=== PATIENT | female | born 1935 | race Caucasian/White ===

== ENCOUNTER 2018-01-02 19:53 | Inpatient (IN) | payer MEDICARE, OTHER ==
--- NOTE | 2018-01-02 20:19 | EDM.PDOC ---
ED HPI GENERAL MEDICAL PROBLEM - General Chief Complaint: General Stated Complaint: [facility] Time Seen by Provider: 01/02/18 19:57 Source of Information: Reports: Patient, EMS History Limitations: Reports: No Limitations - History of Present Illness INITIAL COMMENTS - FREE TEXT/NARRATIVE: This is an 82-year-old female. She apparently was doing fine this morning went out and worked in the yard then came back into the house and took a nap and woke up around 1 PM. When she attempted to get out of bed she had severe dizziness with nausea and vomiting and a brief episode of syncope. Apparently she tells me that she's tried to get out of bed several times but because of the brief syncope with nausea and vomiting and dizziness she could not get up. She tells me the dizziness is more like the room spinning. She denies any vomiting of blood or black or red stools recently. She denies any recent upper respiratory infections coughs or colds. She denies any chest pain. She does take amiodarone and she has a very old prescription of meclizine that looks like it's about 8 years old. She denies any abdominal pain just complains of nausea and vomiting. She denies any significant weakness unilateral arm or leg at this time. She denies any headaches at this time. She has no history of strokes in the past though there is a large family history of strokes. I quizzed the patient again and when I asked if it was the room spinning or lightheaded she had a hard time telling me which one then she settled on lightheaded not the room spinning. - Related Data Allergies Allergy/AdvReac Type Severity Reaction Status Date / Time No Known Allergies Allergy Verified 01/02/18 20:20 Home Meds: Home Meds Losartan Potassium 100 mg PO DAILY 01/02/18 [History] Meclizine [Antivert] 25 mg PO TID PRN 01/02/18 [History] Pravastatin Sodium 20 mg PO DAILY 01/02/18 [History] Zolpidem [Ambien] 5 mg PO BEDTIME PRN 01/02/18 [History] amLODIPine [Norvasc] 5 mg PO DAILY 01/02/18 [History] oxyCODONE ER [OxyCONTIN] 20 mg PO BID PRN 01/02/18 [History] ED ROS GENERAL - Review of Systems Review Of Systems: See Below Constitutional: Reports: Weakness. Denies: Fever, Chills HEENT: Reports: Vertigo. Denies: Ear Discharge, Ear Pain, Nosebleed, Rhinitis, Sinus Problem, Throat Pain, Throat Swelling, Vision Change Respiratory: Denies: Shortness of Breath, Cough Cardiovascular: Reports: Lightheadedness, Syncope. Denies: Chest Pain Endocrine: Reports: No Symptoms GI/Abdominal: Denies: Abdominal Pain, Black Stool, Bloody Stool, Diarrhea, Hematemesis, Nausea, Vomiting : Denies: Discharge, Dysuria Musculoskeletal: Reports: No Symptoms Skin: Reports: No Symptoms Neurological: Reports: Dizziness. Denies: Headache, Numbness, Paresthesia, Tingling Psychiatric: Reports: No Symptoms Hematologic/Lymphatic: Reports: No Symptoms Immunologic: Reports: No Symptoms ED EXAM, GENERAL - Physical Exam Exam: See Below Exam Limited By: No Limitations General Appearance: Alert, WD/WN, Mild Distress Eye Exam: Bilateral Eye: EOMI, Normal Inspection, Nystagmus (When she turns her head to the left she gets more dizziness than when she turns to the right, there might be some vertical nystagmus noted with head movement but she doesn't want to move her head), PERRL Ears: Normal External Exam, Normal Canal, Normal TMs Nose: Normal Inspection Throat/Mouth: Normal Inspection, Normal Lips, Normal Oropharynx, Normal Voice, No Airway Compromise Head: Normocephalic Neck: Supple, Non-Tender Respiratory/Chest: No Respiratory Distress, Lungs Clear, Normal Breath Sounds Cardiovascular: Regular Rate, Rhythm, No Murmur GI/Abdominal: Soft, Non-Tender. No: Distended, Guarding, Rigid, Rebound Extremities: Normal Inspection, Normal Range of Motion, No Pedal Edema Neurological: Alert, Oriented, Other (Patient is generally weak but she is able to business economist symmetrically and raise her upper extremities symmetrically as well as her lower extremities symmetrically.) Psychiatric: Normal Mood, Anxious Skin Exam: Warm, Dry EKG INTERPRETATION EKG Date: 01/02/18 Time: 20:15 EKG Interpretation Comments: Normal sinus rhythm with multiple PVCs, there is no acute ST elevation or T- wave changes, and no obvious ischemic changes noted, the PVCs appeared to be unifocal. Course - Vital Signs Last Recorded V/S: Last Vital Signs Temp 99 F 01/02/18 20:02 Pulse 90 01/02/18 21:01 Resp 18 01/02/18 21:01 BP 141/81 H 01/02/18 21:01 Pulse Ox 88 L 01/02/18 21:01 Orthostatic Blood Pressure [ 177/74 Sitting] Orthostatic Blood Pressure [ 166/80 Supine] - Orders/Labs/Meds Orders: Active Orders 24 hr Category Date Time Status EKG 12 Lead [EKG Documentation Completion] [RC] STAT Care 01/02/18 20:07 Active UA W/MICROSCOPIC [URIN] Stat Lab 01/02/18 20:06 Ordered Sodium Chloride 0.9% [Normal Saline] 1,000 ml Med 01/02/18 20:30 Active IV ASDIRECTED Medication Orders Sodium Chloride (Normal Saline) 1,000 mls @ 100 mls/hr IV ASDIRECTED AWA Last Admin: 01/02/18 20:36 Dose: 100 mls/hr Labs: Laboratory Tests 01/02/18 01/02/18 01/02/18 Range/Units 20:50 20:50 20:50 WBC 7.32 (3.98-10.04) K/mm3 RBC 4.63 (3.98-5.22) M/mm3 Hgb 13.2 (11.2-15.7) gm/L Hct 40.3 (34.1-44.9) % MCV 87.0 (79.4-94.8) fl MCH 28.5 (25.6-32.2) pg MCHC 32.8 (32.2-35.5) g/dl RDW Std Deviation 46.1 (36.4-46.3) fL Plt Count 185 (182-369) K/mm3 MPV 10.4 (9.4-12.3) fl Neut % (Auto) 83.4 H (34.0-71.1) % Lymph % (Auto) 12.4 L (19.3-51.7) % [place] % (Auto) 3.6 L (4.7-12.5) % Eos % (Auto) 0.4 L (0.7-5.8) Baso % (Auto) 0.1 (0.1-1.2) % Neut # (Auto) 6.10 (1.56-6.13) K/mm3 Lymph # (Auto) 0.91 L (1.18-3.74) K/mm3 [place] # (Auto) 0.26 (0.24-0.36) K/mm3 Eos # (Auto) 0.03 L (0.04-0.36) K/mm3 Baso # (Auto) 0.01 (0.01-0.08) K/mm3 Sodium 138 (136-145) mEq/L Potassium 3.7 (3.5-5.1) mEq/L Chloride 104 (98-107) mEq/L Carbon Dioxide 25 (21-32) mEq/L Anion Gap 12.7 (5-15) BUN 15 (7-18) mg/dL Creatinine 0.9 (0.55-1.02) mg/dL Est Cr Clr Drug Dosing 46.94 mL/min Estimated GFR (MDRD) 60 (>60) mL/min BUN/Creatinine Ratio 16.7 (14-18) Glucose 197 H (83-115) mg/dL Calcium 8.8 (8.5-10.1) mg/dL Total Bilirubin 0.7 (0.2-1.0) mg/dL AST 21 (15-37) U/L ALT 20 (14-59) U/L Alkaline Phosphatase 60 (46-116) U/L Troponin I < 0.017 (0.00-0.056) ng/mL C-Reactive Protein (<1.0) mg/dL NT-Pro-B Natriuret Pep 274 (0-450) pg/mL Total Protein 6.7 (6.4-8.2) g/dl Albumin 3.2 L (3.4-5.0) g/dl Globulin 3.5 gm/dL Albumin/Globulin Ratio 0.9 L (1-2) 01/02/18 Range/Units 20:50 WBC (3.98-10.04) K/mm3 RBC (3.98-5.22) M/mm3 Hgb (11.2-15.7) gm/L Hct (34.1-44.9) % MCV (79.4-94.8) fl MCH (25.6-32.2) pg MCHC (32.2-35.5) g/dl RDW Std Deviation (36.4-46.3) fL Plt Count (182-369) K/mm3 MPV (9.4-12.3) fl Neut % (Auto) (34.0-71.1) % Lymph % (Auto) (19.3-51.7) % [place] % (Auto) (4.7-12.5) % Eos % (Auto) (0.7-5.8) Baso % (Auto) (0.1-1.2) % Neut # (Auto) (1.56-6.13) K/mm3 Lymph # (Auto) (1.18-3.74) K/mm3 [place] # (Auto) (0.24-0.36) K/mm3 Eos # (Auto) (0.04-0.36) K/mm3 Baso # (Auto) (0.01-0.08) K/mm3 Sodium (136-145) mEq/L Potassium (3.5-5.1) mEq/L Chloride (98-107) mEq/L Carbon Dioxide (21-32) mEq/L Anion Gap (5-15) BUN (7-18) mg/dL Creatinine (0.55-1.02) mg/dL Est Cr Clr Drug Dosing mL/min Estimated GFR (MDRD) (>60) mL/min BUN/Creatinine Ratio (14-18) Glucose (83-115) mg/dL Calcium (8.5-10.1) mg/dL Total Bilirubin (0.2-1.0) mg/dL AST (15-37) U/L ALT (14-59) U/L Alkaline Phosphatase (46-116) U/L Troponin I (0.00-0.056) ng/mL C-Reactive Protein < 0.2 (<1.0) mg/dL NT-Pro-B Natriuret Pep (0-450) pg/mL Total Protein (6.4-8.2) g/dl Albumin (3.4-5.0) g/dl Globulin gm/dL Albumin/Globulin Ratio (1-2) Meds: Medications Generic Name Dose Route Start Last Admin Trade Name Freq PRN Reason Stop Dose Admin Sodium Chloride 1,000 mls @ 100 mls/hr 01/02/18 20:30 01/02/18 20:36 Normal Saline IV 100 mls/hr ASDIRECTED AWA Administration Discontinued Medications Generic Name Dose Route Start Last Admin Trade Name Freq PRN Reason Stop Dose Admin Promethazine HCl 25 mg/ Sodium 51 mls @ 100 mls/hr 01/02/18 20:24 01/02/18 20 :36 Chloride IV 01/02/18 20:54 100 mls/hr ONETIME ONE Administration - Radiology Interpretation Free Text/Narrative:: CT scan of the head does not show any acute changes or bleed, she does have some chronic ischemic changes noted. - Re-Assessments/Exams Free Text/Narrative Re-Assessment/Exam: 01/02/18 20:23 A check of her vomitus shows coffee grounds that are positive for blood and her stool is slightly positive for blood as well. 01/02/18 20:58 Patient is noted to have a low pulse ox it drops down to 89% on room air and she is awake and talking. We will provide 2 L/m nasal cannula. 01/02/18 22:45 We have attempted several times to sit the patient up and she just has persistent nausea and vomiting and complains of being lightheaded or having dizziness. I spoke to the regarding the symptoms and I believe she will need to be admitted due to her persistent dizziness with nausea and vomiting and inability to ambulate. 01/02/18 22:[address] Narvaez and she will admit the patient for further evaluation and treatment. Departure - Departure Time of Disposition: 22:46 Disposition: Admitted As Inpatient 64 Condition: Fair Clinical Impression: Dizziness, Vertigo, Hematemesis with nausea, Blood present in stool, Elevated blood pressure reading Nausea & vomiting Qualifiers: Vomiting type: unspecified Vomiting Intractability: intractable Qualified Code( s): R11.2 - Nausea with vomiting, unspecified - Discharge Information ED Communication - ED Communication Date/Time Date: 01/02/18 Time Called: 22:49 - Discussed Case With (1) Discussed Case With (1): Admitting Provider Person/s Notified (1): Amanda Narvaez (She will admit the patient for further evaluation and treatment) - My Orders Last 24 Hours: My Active Orders 01/02/18 20:06 UA W/MICROSCOPIC [URIN] Stat 01/02/18 20:07 EKG 12 Lead [EKG Documentation Completion] [RC] STAT 01/02/18 20:30 Sodium Chloride 0.9% [Normal Saline] 1,000 ml IV ASDIRECTED - Assessment/Plan Last 24 Hours: My Active Orders 01/02/18 20:06 UA W/MICROSCOPIC [URIN] Stat 01/02/18 20:07 EKG 12 Lead [EKG Documentation Completion] [RC] STAT 01/02/18 20:30 Sodium Chloride 0.9% [Normal Saline] 1,000 ml IV ASDIRECTED
[2018-01-02] MEDS ORDERED: Promethazine 25 MG in Sodium Chloride 0.9% 50 ML IV ONE (20:24)
[2018-01-02] MEDS: Sodium Chloride 0.9% 1,000 ML IV SCH (20:36)
--- NOTE | 2018-01-02 20:47 | CT ---
Head CT Technique: Multiple axial sections through the brain were obtained. Intravenous contrast was not utilized. Comparison: No previous intracranial imaging. Findings: Ventricles along with basal cisterns and sulci over convexities are mildly to moderately prominent. Increased CSF space is seen overlying the left frontal and parietal regions which is more prominent on the left side than on the right side which is felt to be due to asymmetric atrophy. Diminished density is noted within portions of the periventricular and subcortical white matter on both sides compatible with small vessel ischemic demyelination change. No other abnormal parenchymal densities are seen. No evidence of intracranial hemorrhage. No midline shift or mass effect is seen. Atherosclerotic calcification is seen within the carotid siphon and within the vertebral vessels. No acute calvarial abnormality is seen. Visualized sinuses are clear. Impression: 1. Senescent change as described above. 2. No acute intracranial abnormality is appreciated on noncontrast head CT exam. Diagnostic code #2
--- NOTE | 2018-01-02 21:01 | CR ---
Chest: Portable view of the chest was obtained. Comparison: No prior chest x-ray. Heart size and mediastinum are within normal limits for portable technique. Minimal bibasilar atelectasis is seen. Lungs otherwise are clear. Bony structures are grossly intact. Impression: 1. Incidental findings. Nothing acute is seen. Diagnostic code #2
[2018-01-03] MEDS ORDERED: Ondansetron 4 MG/2 ML SDV IVPUSH PRN (00:27)
[2018-01-03] MEDS ORDERED: Temazepam 7.5 MG Cap PO PRN (00:27)
[2018-01-03] MEDS ORDERED: Acetaminophen 325 MG Tab PO PRN (00:27)
[2018-01-03] MEDS: Meclizine 12.5 MG Tab PO SCH ×3 (01:05→20:42)
[2018-01-03] MEDS: Sodium Chloride 0.9% 1,000 ML IV SCH (08:00)
[2018-01-03] MEDS: Promethazine 25 MG Tab PO SCH ×4 (08:07→20:42)
[2018-01-03] MEDS ORDERED: Promethazine 12.5 MG in Sodium Chloride 0.9% 50 ML IV SCH (09:00)
--- NOTE | 2018-01-03 09:41 | PCM.HP ---
H&P History of Present Illness - General Date of Service: 01/03/18 Admit Problem/Dx: Admission Diagnosis/Problem Admission Diagnosis/Problem Vertigo Source of Information: Patient, Provider History Limitations: Reports: No Limitations - History of Present Illness Initial Comments - Free Text/Narative: 82 year old female complained of the room spinning after awakening from a nap. However later she reversed her complaint stating she was lightheaded. She stated that she had had several episodes of nausea without vomiting. There was no change in appetite or GI habits. She denies abdominal pain or chest pain. There have been no recent medication changes. In the ED, the patient was questioned regarding a previous Antivert prescriptions but stated that it was very old. The hospitalist service questioned the use, and the patient had no memory of questions regarding the use of Antivert. Onset of Symptoms: Reports: Sudden Symptom Onset Date: 01/02/18 Duration of Symptoms: Reports: Hour(s):, Constant, Getting Worse Location: Reports: Generalized Quality: Reports: Same as Previous Episode Severity: Moderate Improves with: Reports: Medication Worsens with: Reports: Movement Associated Symptoms: Reports: Nausea/Vomiting, Weakness - Related Data Allergies/Adverse Reactions: Allergies Allergy/AdvReac Type Severity Reaction Status Date / Time No Known Allergies Allergy Verified 01/02/18 20:20 Home Medications: Home Meds Meclizine [Antivert] 25 mg PO TID PRN 01/02/18 [History] Pravastatin Sodium 20 mg PO DAILY 01/02/18 [History] Zolpidem [Ambien] 5 mg PO BEDTIME PRN 01/02/18 [History] amLODIPine [Norvasc] 5 mg PO DAILY 01/02/18 [History] oxyCODONE ER [OxyCONTIN] 20 mg PO BID PRN 01/02/18 [History] Losartan [Cozaar] 50 mg PO BID #60 tablet 01/04/18 [Rx] Past Medical History HEENT History: Reports: Cataract Cardiovascular History: Reports: High Cholesterol, Hypertension, Stents Musculoskeletal History: Reports: Other (See Below) Other Musculoskeletal History: generalized pain legs Neurological History: Reports: Vertigo Oncologic (Cancer) History: Reports: Squamous Cell Carcinoma Other Dermatologic History: basal cell carcinoma - Infectious Disease History Infectious Disease History: Reports: Chicken Pox, Measles, Mumps - Past Surgical History HEENT Surgical History: Reports: None Cardiovascular Surgical History: Reports: Coronary Artery Bypass Other Cardiovascular Surgeries/Procedures: 2002 Neurological Surgical History: Reports: None Oncologic Surgical History: Reports: None Dermatological Surgical History: Reports: None Social & Family History - Family History Family Medical History: Noncontributory - Tobacco Use Smoking Status *Q: Never Smoker Second Hand Smoke Exposure: No - Caffeine Use Caffeine Use: Reports: Coffee - Recreational Drug Use Recreational Drug Use: No H&P Review of Systems - Review of Systems: Review Of Systems: See Below General: Reports: Weakness HEENT: Reports: No Symptoms Pulmonary: Reports: No Symptoms Cardiovascular: Reports: Lightheadedness, Other (presyncopal) Gastrointestinal: Reports: Decreased Appetite Genitourinary: Reports: No Symptoms Musculoskeletal: Reports: No Symptoms Skin: Reports: No Symptoms Psychiatric: Reports: Confusion Neurological: Reports: No Symptoms, Difficulty Walking, Weakness Hematologic/Lymphatic: Reports: No Symptoms Immunologic: Reports: No Symptoms Exam - Exam Exam: See Below - Vital Signs Vital Signs: Last Vital Signs Temp 36.9 C 01/03/18 08:07 Pulse 66 01/03/18 08:07 Resp 16 01/03/18 08:07 BP 114/64 01/03/18 08:07 Pulse Ox 97 01/03/18 08:07 Orthostatic Blood Pressure [ 177/74 Sitting] Orthostatic Blood Pressure [ 166/80 Supine] Weight: 84.141 kg - Exam Quality Assessment: Supplemental Oxygen, DVT Prophylaxis General: Alert, Oriented, Cooperative HEENT: Mucosa Moist & [place], Pupils Equal, Pupils Reactive, PERRLA Neck: Trachea Midline, JVD Lungs: Clear to Auscultation, Normal Respiratory Effort Cardiovascular: Regular Rate GI/Abdominal Exam: Normal Bowel Sounds, Soft, Non-Tender, No Organomegaly, No Distention (Female) Exam: Deferred Rectal (Female) Exam: Deferred Back Exam: Normal Inspection Extremities: Normal Inspection, Non-Tender, Normal Capillary Refill Skin: Warm Neurological: Cranial Nerves Intact Neuro Extensive - Mental Status: Alert. No: Oriented x3 (orientedx2) Neuro Extensive - Motor, Sensory, Reflexes: CN II-XII Intact Psychiatric: Alert - Patient Data Lab Results Last 24 hrs: Laboratory Results - last 24 hr 01/02/18 01/02/18 01/02/18 Range/Units 20:50 20:50 20:50 WBC 7.32 (3.98-10.04) K/mm3 RBC 4.63 (3.98-5.22) M/mm3 Hgb 13.2 (11.2-15.7) gm/L Hct 40.3 (34.1-44.9) % MCV 87.0 (79.4-94.8) fl MCH 28.5 (25.6-32.2) pg MCHC 32.8 (32.2-35.5) g/dl RDW Std Deviation 46.1 (36.4-46.3) fL Plt Count 185 (182-369) K/mm3 MPV 10.4 (9.4-12.3) fl Neut % (Auto) 83.4 H (34.0-71.1) % Lymph % (Auto) 12.4 L (19.3-51.7) % [place] % (Auto) 3.6 L (4.7-12.5) % Eos % (Auto) 0.4 L (0.7-5.8) Baso % (Auto) 0.1 (0.1-1.2) % Neut # (Auto) 6.10 (1.56-6.13) K/mm3 Lymph # (Auto) 0.91 L (1.18-3.74) K/mm3 [place] # (Auto) 0.26 (0.24-0.36) K/mm3 Eos # (Auto) 0.03 L (0.04-0.36) K/mm3 Baso # (Auto) 0.01 (0.01-0.08) K/mm3 Sodium 138 (136-145) mEq/L Potassium 3.7 (3.5-5.1) mEq/L Chloride 104 (98-107) mEq/L Carbon Dioxide 25 (21-32) mEq/L Anion Gap 12.7 (5-15) BUN 15 (7-18) mg/dL Creatinine 0.9 (0.55-1.02) mg/dL Est Cr Clr Drug Dosing 46.94 mL/min Estimated GFR (MDRD) 60 (>60) mL/min BUN/Creatinine Ratio 16.7 (14-18) Glucose 197 H (83-115) mg/dL Calcium 8.8 (8.5-10.1) mg/dL Magnesium (1.8-2.4) mg/dl Total Bilirubin 0.7 (0.2-1.0) mg/dL AST 21 (15-37) U/L ALT 20 (14-59) U/L Alkaline Phosphatase 60 (46-116) U/L Troponin I < 0.017 (0.00-0.056) ng/mL C-Reactive Protein (<1.0) mg/dL NT-Pro-B Natriuret Pep 274 (0-450) pg/mL Total Protein 6.7 (6.4-8.2) g/dl Albumin 3.2 L (3.4-5.0) g/dl Globulin 3.5 gm/dL Albumin/Globulin Ratio 0.9 L (1-2) Urine Color (Yellow) Urine Appearance (Clear) Urine pH (5.0-8.0) Ur Specific [place] (1.005-1.030) Urine Protein (Negative) Urine Glucose (UA) (Negative) Urine Ketones (Negative) Urine Occult Blood (Negative) Urine Nitrite (Negative) Urine Bilirubin (Negative) Urine Urobilinogen (0.2-1.0) Ur Leukocyte Esterase (Negative) Urine RBC (0-5) /hpf Urine WBC (0-5) /hpf Ur Epithelial Cells (0-5) /hpf Urine Bacteria (FEW) /hpf Urine Mucus (FEW) /hpf Mycoplasma pneumon IgM (NEGATIVE) 01/02/18 01/03/18 01/03/18 Range/Units 20:50 01:50 05:31 WBC 8.77 (3.98-10.04) K/mm3 RBC 4.46 (3.98-5.22) M/mm3 Hgb 12.7 (11.2-15.7) gm/L Hct 38.9 (34.1-44.9) % MCV 87.2 (79.4-94.8) fl MCH 28.5 (25.6-32.2) pg MCHC 32.6 (32.2-35.5) g/dl RDW Std Deviation 46.0 (36.4-46.3) fL Plt Count 181 L (182-369) K/mm3 MPV 10.9 (9.4-12.3) fl Neut % (Auto) 75.8 H (34.0-71.1) % Lymph % (Auto) 17.8 L (19.3-51.7) % [place] % (Auto) 6.0 (4.7-12.5) % Eos % (Auto) 0.1 L (0.7-5.8) Baso % (Auto) 0.1 (0.1-1.2) % Neut # (Auto) 6.64 H (1.56-6.13) K/mm3 Lymph # (Auto) 1.56 (1.18-3.74) K/mm3 [place] # (Auto) 0.53 H (0.24-0.36) K/mm3 Eos # (Auto) 0.01 L (0.04-0.36) K/mm3 Baso # (Auto) 0.01 (0.01-0.08) K/mm3 Sodium (136-145) mEq/L Potassium (3.5-5.1) mEq/L Chloride (98-107) mEq/L Carbon Dioxide (21-32) mEq/L Anion Gap (5-15) BUN (7-18) mg/dL Creatinine (0.55-1.02) mg/dL Est Cr Clr Drug Dosing mL/min Estimated GFR (MDRD) (>60) mL/min BUN/Creatinine Ratio (14-18) Glucose (83-115) mg/dL Calcium (8.5-10.1) mg/dL Magnesium (1.8-2.4) mg/dl Total Bilirubin (0.2-1.0) mg/dL AST (15-37) U/L ALT (14-59) U/L Alkaline Phosphatase (46-116) U/L Troponin I (0.00-0.056) ng/mL C-Reactive Protein < 0.2 (<1.0) mg/dL NT-Pro-B Natriuret Pep (0-450) pg/mL Total Protein (6.4-8.2) g/dl Albumin (3.4-5.0) g/dl Globulin gm/dL Albumin/Globulin Ratio (1-2) Urine Color Yellow (Yellow) Urine Appearance Clear (Clear) Urine pH 7.0 (5.0-8.0) Ur Specific [place] 1.020 (1.005-1.030) Urine Protein Negative (Negative) Urine Glucose (UA) Negative (Negative) Urine Ketones Negative (Negative) Urine Occult Blood Negative (Negative) Urine Nitrite Negative (Negative) Urine Bilirubin Negative (Negative) Urine Urobilinogen 0.2 (0.2-1.0) Ur Leukocyte Esterase Trace H (Negative) Urine RBC 0-5 (0-5) /hpf Urine WBC 0-5 (0-5) /hpf Ur Epithelial Cells 5-10 H (0-5) /hpf Urine Bacteria Few (FEW) /hpf Urine Mucus Few (FEW) /hpf Mycoplasma pneumon IgM (NEGATIVE) 01/03/18 Range/Units 05:31 WBC (3.98-10.04) K/mm3 RBC (3.98-5.22) M/mm3 Hgb (11.2-15.7) gm/L Hct (34.1-44.9) % MCV (79.4-94.8) fl MCH (25.6-32.2) pg MCHC (32.2-35.5) g/dl RDW Std Deviation (36.4-46.3) fL Plt Count (182-369) K/mm3 MPV (9.4-12.3) fl Neut % (Auto) (34.0-71.1) % Lymph % (Auto) (19.3-51.7) % [place] % (Auto) (4.7-12.5) % Eos % (Auto) (0.7-5.8) Baso % (Auto) (0.1-1.2) % Neut # (Auto) (1.56-6.13) K/mm3 Lymph # (Auto) (1.18-3.74) K/mm3 [place] # (Auto) (0.24-0.36) K/mm3 Eos # (Auto) (0.04-0.36) K/mm3 Baso # (Auto) (0.01-0.08) K/mm3 Sodium 139 (136-145) mEq/L Potassium 3.7 (3.5-5.1) mEq/L Chloride 107 (98-107) mEq/L Carbon Dioxide 25 (21-32) mEq/L Anion Gap 10.7 (5-15) BUN 10 (7-18) mg/dL Creatinine 0.8 (0.55-1.02) mg/dL Est Cr Clr Drug Dosing 52.81 mL/min Estimated GFR (MDRD) > 60 (>60) mL/min BUN/Creatinine Ratio 12.5 L (14-18) Glucose 119 H (83-115) mg/dL Calcium 8.6 (8.5-10.1) mg/dL Magnesium 1.7 L (1.8-2.4) mg/dl Total Bilirubin (0.2-1.0) mg/dL AST (15-37) U/L ALT (14-59) U/L Alkaline Phosphatase (46-116) U/L Troponin I < 0.017 (0.00-0.056) ng/mL C-Reactive Protein (<1.0) mg/dL NT-Pro-B Natriuret Pep (0-450) pg/mL Total Protein (6.4-8.2) g/dl Albumin (3.4-5.0) g/dl Globulin gm/dL Albumin/Globulin Ratio (1-2) Urine Color (Yellow) Urine Appearance (Clear) Urine pH (5.0-8.0) Ur Specific [place] (1.005-1.030) Urine Protein (Negative) Urine Glucose (UA) (Negative) Urine Ketones (Negative) Urine Occult Blood (Negative) Urine Nitrite (Negative) Urine Bilirubin (Negative) Urine Urobilinogen (0.2-1.0) Ur Leukocyte Esterase (Negative) Urine RBC (0-5) /hpf Urine WBC (0-5) /hpf Ur Epithelial Cells (0-5) /hpf Urine Bacteria (FEW) /hpf Urine Mucus (FEW) /hpf Mycoplasma pneumon IgM Negative (NEGATIVE) Result Diagrams: 01/04/18 05:32 01/04/18 05:32 Problem List Initiated/Reviewed/Updated: Yes Orders Last 24hrs: Active Orders 24 hr Category Date Time Status Admission Status [Patient Status] [ADT] Routine ADT 01/02/18 22:52 Active EKG Documentation Completion [RC] 0730 Care 01/03/18 00:28 Active OT Evaluation and Treatment [CONS] Routine Cons 01/03/18 00:27 Active PT Evaluation and Treatment [CONS] Routine Cons 01/03/18 00:27 Active Clear Liquid Diet [DIET] Diet 01/03/18 Breakfast Active CULTURE URINE [RM] Routine Lab 01/03/18 01:50 Received UA W/MICROSCOPIC [URIN] Routine Lab 01/03/18 01:50 COMP Acetaminophen [Tylenol] Med 01/03/18 00:27 Active 650 mg PO Q6H PRN Meclizine [Antivert] Med 01/03/18 00:30 Active 12.5 mg PO BID Ondansetron [Zofran] Med 01/03/18 00:27 Active 4 mg IVPUSH Q8H PRN Promethazine [Phenergan] Med 01/03/18 09:00 Active 12.5 mg PO QID Sodium Chloride 0.9% [Normal Saline] 1,000 ml Med 01/02/18 20:30 Active IV ASDIRECTED Temazepam [Restoril] Med 01/03/18 00:27 Active 7.5 mg PO BEDTIME PRN Resuscitation Status Routine Resus Stat 01/03/18 00:27 Ordered EKG 12 Lead [EK] Routine Ther 01/03/18 07:30 Ordered Medication Orders Acetaminophen (Tylenol) 650 mg PO Q6H PRN PRN Reason: Pain/Fever Sodium Chloride (Normal Saline) 1,000 mls @ 100 mls/hr IV ASDIRECTED [facility] Last Admin: 01/03/18 08:00 Dose: 100 mls/hr Infusion: 01/03/18 06:36 Dose: 100 mls/hr Admin: 01/02/18 20:36 Dose: 100 mls/hr Meclizine HCl (Antivert) 12.5 mg PO BID [facility] Last Admin: 01/03/18 08:07 Dose: 12.5 mg Admin: 01/03/18 01:05 Dose: 12.5 mg Ondansetron HCl (Zofran) 4 mg IVPUSH Q8H PRN PRN Reason: Nausea Last Admin: 01/03/18 01:05 Dose: 4 mg Promethazine HCl (Phenergan) 12.5 mg PO QID [facility] Last Admin: 01/03/18 08:07 Dose: 12.5 mg Temazepam (Restoril) 7.5 mg PO BEDTIME PRN PRN Reason: Insomnia Assessment/Plan Comment:: Impression: Dizziness, doubt Vertigo Persistent Nausea/Vomiting Query dementia, CT of head w/o acute changes Hypoxia, transient Chronic HTN HLD Plan: Supportive care IVF, aggressively Antiemetic Resume Antivert Home meds Daily labs DVT/GI prophylaxis
[2018-01-03] MEDS ORDERED: Enoxaparin 40 MG/0.4 ML Syringe SUBCUT SCH (17:00)
[2018-01-03] MEDS: Losartan 100 MG Tab PO SCH (20:43)
[2018-01-04] MEDS: Losartan 100 MG Tab PO SCH (08:49)
[2018-01-04] MEDS: Promethazine 25 MG Tab PO SCH (08:50)
[2018-01-04] MEDS: Meclizine 12.5 MG Tab PO SCH (08:50)
[2018-01-04] MEDS ORDERED: amLODIPine 5 MG Tab PO SCH (09:00)
--- NOTE | 2018-01-04 10:41 | PCM.DCSUM1 ---
Discharge Summary - Hospital Course Free Text/Narrative:: 82 year old female complained of the room spinning after awakening from a nap. However later she reversed her complaint stating she was lightheaded. She stated that she had had several episodes of nausea without vomiting. There was no change in appetite or GI habits. She denies abdominal pain or chest pain. There have been no recent medication changes. In the ED, the patient was questioned regarding a previous Antivert prescriptions but stated that it was very old. The hospitalist service questioned the use, and the patient had no memory of questions regarding the use of Antivert. - Discharge Data Discharge Date: 01/04/18 Discharge Disposition: Home, Self-Care 01 Condition: Good - Patient Summary/Data Consults: Consultations 01/03/18 00:27 OT Evaluation and Treatment [CONS] Routine PT Evaluation and Treatment [CONS] Routine - Patient Instructions Diet: Usual Diet as Tolerated Activity: As Tolerated Driving: Do Not Drive Showering/Bathing: May Shower Notify Provider of: Fever, Increased Pain, Nausea and/or Vomiting - Discharge Plan Prescriptions/Med Rec: Losartan [Cozaar] 50 mg PO BID #60 tablet Home Medications: Home Meds Meclizine [Antivert] 25 mg PO TID PRN 01/02/18 [History] Pravastatin Sodium 20 mg PO DAILY 01/02/18 [History] Zolpidem [Ambien] 5 mg PO BEDTIME PRN 01/02/18 [History] amLODIPine [Norvasc] 5 mg PO DAILY 01/02/18 [History] oxyCODONE ER [OxyCONTIN] 20 mg PO BID PRN 01/02/18 [History] Losartan [Cozaar] 50 mg PO BID #60 tablet 01/04/18 [Rx] Patient Handouts: Vertigo, [id number], Near-Syncope, [id number] Referrals: Mayank Deng MD [Physician] - (Please schedule an appointment for possible colonoscopy within 1 week.) Josué Leigh MD [Primary Care Provider] - (Please keep current appointment) - Discharge Summary/Plan Comment DC Time >30 min.: No Discharge Summary/Plan Comment: Impression: Dizziness--->Vertigo resolved with Antivert 25 mg TID prn Persistent Nausea/Vomiting-->resolved Query dementia, CT of head w/o acute changes Hypoxia, transient; resolved; resp work up was negative Dehydration--resolved; diet advanced as tolerated. Hypertensive meds resumed at DC Electrolyte abnormality--resolved Occult blood positive, Hgb stable Query dementia Chronic HTN HLD Plan: Gen surg eval as OP for colonsocopy re: anemia PCP 1-2 weeks Supportive care IVF, aggressively Antiemetic Resume Antivert, home dose Home meds Daily labs DVT/GI prophylaxis DC home follow up with PCP 1-2 weeks. No change in home meds - General Info Date of Service: 01/03/18 Functional Status: Reports: Tolerating Diet, Ambulating (walked three laps ), Urinating - Review of Systems General: Reports: No Symptoms HEENT: Reports: No Symptoms Pulmonary: Reports: No Symptoms Cardiovascular: Reports: No Symptoms Gastrointestinal: Reports: No Symptoms Genitourinary: Reports: No Symptoms Musculoskeletal: Reports: No Symptoms Skin: Reports: No Symptoms Neurological: Reports: No Symptoms Psychiatric: Reports: No Symptoms - Patient Data Vitals - Most Recent: Last Vital Signs Temp 36.4 C 01/04/18 08:18 Pulse 69 01/04/18 08:18 Resp 16 01/04/18 08:18 BP 132/72 01/04/18 08:51 Pulse Ox 97 01/04/18 08:18 Orthostatic Blood Pressure [ 177/74 Sitting] Orthostatic Blood Pressure [ 166/80 Supine] Weight - Most Recent: 81.556 kg I&O - Last 24 hours: Intake & Output 01/03/18 01/04/18 01/04/18 22:59 06:59 14:59 Intake Total 800 400 180 Output Total 1800 Balance -1000 400 180 Lab Results - Last 24 hrs: Laboratory Results - last 24 hr 01/04/18 01/04/18 Range/Units 05:32 05:32 WBC 9.48 (3.98-10.04) K/mm3 RBC 5.10 (3.98-5.22) M/mm3 Hgb 14.0 (11.2-15.7) gm/L Hct 44.7 (34.1-44.9) % MCV 87.6 (79.4-94.8) fl MCH 27.5 (25.6-32.2) pg MCHC 31.3 L (32.2-35.5) g/dl RDW Std Deviation 48.2 H (36.4-46.3) fL Plt Count 210 (182-369) K/mm3 MPV 11.1 (9.4-12.3) fl Neut % (Auto) 56.4 (34.0-71.1) % Lymph % (Auto) 31.6 (19.3-51.7) % Whitley % (Auto) 7.4 (4.7-12.5) % Eos % (Auto) 4.1 (0.7-5.8) Baso % (Auto) 0.4 (0.1-1.2) % Neut # (Auto) 5.34 (1.56-6.13) K/mm3 Lymph # (Auto) 3.00 (1.18-3.74) K/mm3 Whitley # (Auto) 0.70 H (0.24-0.36) K/mm3 Eos # (Auto) 0.39 H (0.04-0.36) K/mm3 Baso # (Auto) 0.04 (0.01-0.08) K/mm3 Sodium 143 (136-145) mEq/L Potassium 3.7 (3.5-5.1) mEq/L Chloride 108 H (98-107) mEq/L Carbon Dioxide 28 (21-32) mEq/L Anion Gap 10.7 (5-15) BUN 12 (7-18) mg/dL Creatinine 0.9 (0.55-1.02) mg/dL Est Cr Clr Drug Dosing 46.94 mL/min Estimated GFR (MDRD) 60 (>60) mL/min BUN/Creatinine Ratio 13.3 L (14-18) Glucose 94 (83-115) mg/dL Calcium 9.4 (8.5-10.1) mg/dL Magnesium 1.9 (1.8-2.4) mg/dl Triglycerides 93 (<150) mg/dL Cholesterol 175 (<200) mg/dL LDL Cholesterol Direct 94 (<100) mg/dL HDL Cholesterol 64.0 H (40-59) mg/dL Med Orders - Current: Current Medications Acetaminophen (Tylenol) 650 mg PO Q6H PRN PRN Reason: Pain/Fever Amlodipine Besylate (Norvasc) 5 mg PO DAILY AWA Last Admin: 01/04/18 08:51 Dose: 5 mg Enoxaparin Sodium (Lovenox) 40 mg SUBCUT Q24H [facility] Last Admin: 01/03/18 16:53 Dose: 40 mg Losartan Potassium (Cozaar) 50 mg PO BID [facility] Last Admin: 01/04/18 08:49 Dose: 50 mg Meclizine HCl (Antivert) 12.5 mg PO BID [facility] Last Admin: 01/04/18 08:50 Dose: 12.5 mg Meclizine HCl (Antivert) 25 mg PO TID PRN PRN Reason: Dizziness Ondansetron HCl (Zofran) 4 mg IVPUSH Q8H PRN PRN Reason: Nausea Last Admin: 01/03/18 01:05 Dose: 4 mg Promethazine HCl (Phenergan) 12.5 mg PO QID [facility] Last Admin: 01/04/18 08:50 Dose: 12.5 mg Simvastatin (Zocor) 10 mg PO BEDTIME AWA Temazepam (Restoril) 7.5 mg PO BEDTIME PRN PRN Reason: Insomnia Discontinued Medications Promethazine HCl 25 mg/ Sodium (Chloride) 51 mls @ 100 mls/hr IV ONETIME ONE Stop: 01/02/18 20:54 Last Admin: 01/02/18 20:36 Dose: 100 mls/hr Sodium Chloride (Normal Saline) 1,000 mls @ 100 mls/hr IV ASDIRECTED [facility] Last Admin: 01/03/18 08:00 Dose: 100 mls/hr Promethazine HCl 12.5 mg/ (Sodium Chloride) 50.5 mls @ 100 mls/hr IV QID [facility] - Exam Quality Assessment: Reports: DVT Prophylaxis General: Reports: Alert, Oriented, Cooperative, No Acute Distress HEENT: Reports: Pupils Equal, Pupils Reactive, EOMI Neck: Reports: Supple, Trachea Midline, No JVD Lungs: Reports: Normal Respiratory Effort GI/Abdominal Exam: Normal Bowel Sounds, Soft, Non-Tender, No Organomegaly, No Distention (Female) Exam: Normal External Exam Rectal (Female) Exam: Deferred Back Exam: Reports: Normal Inspection Extremities: Normal Inspection, Normal Range of Motion Neurological: Reports: No New Focal Deficit, Normal Gait, Normal Speech Psy/Mental Status: Reports: Alert, Normal Affect, Normal Mood
[2018-01-04] MEDS ORDERED: Simvastatin 10 MG Tab PO SCH (21:00)
== END 2018-01-04 11:42 | disposition home or self-care (01) | DRG 149 ==
LOC: JD.ED 19:53 → JD.MS 23:04
PROVIDERS: ADMIT Internal Medicine Cardiovascular Disease; ATTEND Internal Medicine Cardiovascular Disease
DX: R42 Dizziness and giddiness (principal); R11.2 Nausea with vomiting, unspecified; K92.0 Hematemesis; R53.1 Weakness; R55 Syncope and collapse; K92.1 Melena; E78.00 Pure hypercholesterolemia, unspecified; R03.0 Elevated blood-pressure reading, without diagnosis of hypertension; I10 Essential (primary) hypertension; M79.606 Pain in leg, unspecified; H26.9 Unspecified cataract; Z85.828 Personal history of other malignant neoplasm of skin; Z95.1 Presence of aortocoronary bypass graft; Z79.899 Other long term (current) drug therapy
CPT/HCPCS: 36415; 70450; 71045; 80053; 83880; 84484; 85025; 86140; 93005; J2550; J7040; J7050; 80048; 80061; 81001; 83735; 86738; 87086; 96361; 96365; 97116-GP; 97162-GP; 97530-GP; 99285-25; A9270-GY; J1650; J2405; Q0169